=== PATIENT | male | born 1980 | race Native Hawaiian/Other Pacific Islander ===

== ENCOUNTER 2021-09-01 18:00 | Emergency (ER) | payer OTHER ==
[~2021-09-01] VITALS: Ht 180.3 cm; Wt 82.6 kg
[2021-09-01 18:53] VITALS: BP 126/89; TEMP 97.8
== END 2021-09-01 18:56 | disposition home or self-care (01) ==
LOC: ED 18:00
DX: K04.7 Periapical abscess without sinus (principal); R22.0 Localized swelling, mass and lump, head; R06.2 Wheezing
CPT/HCPCS: 96372; 99283; J0696; J1885; J2175